=== PATIENT | female | born 1950 | race Two or more races ===

== ENCOUNTER 2024-10-27 15:57 | Inpatient (IN) | payer OTHER ==
[~2024-10-27] VITALS: Ht 162.6 cm; Wt 72.6 kg
[2024-10-27] MEDS ORDERED: AMLODIPINE-OLM1 EAC2 (16:19)
[2024-10-27] MEDS ORDERED: WELLBUTRIN SR200 MG (16:19)
[2024-10-27 18:53] LABS: PARTIAL THROMBOPLASTIN TIME 35.3 SECONDS (22.0-34.0); PROTHROMBIN TIME 10.9 SECONDS (9.0-11.5)
[2024-10-27 18:59] LABS: HEMATOCRIT 46.3 % (36.0-45.00); HEMOGLOBIN 14.9 g/dL (12.0-15.00); MEAN CELL VOLUME 85.3 fL (80.00-100.00); MEAN CORPUSCULAR HEMOGLOBIN 27.4 pg (27.00-32.0); MEAN CORPUSCULAR HGB CONC 32.2 g/dl (32.0-36.0); RED BLOOD COUNT 5.43 M/uL (4.00-6.00)
[2024-10-27 19:01] LABS: PLATELET COUNT 58 K/uL (150-450)
[2024-10-27 19:02] LABS: ALBUMIN 3.2 gm/dL (3.4-5.0); BILIRUBIN TOTAL 0.44 mg/dL (0.3-1.2); CALCIUM 9.3 mg/dL (8.5-10.1); CREATININE SERUM 0.87 mg/dL (0.55-1.02); GFR 63.82; GLOBULINA 3.4 G/DL (2.4-3.5); POTASSIUM 3.91 mEq/L (3.5-5.1); TOTAL PROTEIN 6.6 gm/dL (6.4-8.2)
[2024-10-27] MEDS ORDERED: 0.9 % SODIUM CHLORIDE 1,000 ML IV SCH (20:45)
[2024-10-27] MEDS ORDERED: ACETAMINOPHEN 500 MG GEL..CAP PO PRN (21:00)
[2024-10-27] MEDS ORDERED: ONDANSETRON HCL 4 MG in 0.9 % SODIUM CHLORIDE 50 ML IV PRN (21:00)
[2024-10-27 22:09] LABS: PH,URINE 5.5 (5.0-8.0); URINE APPEARANCE Clear; URINE BILIRRUBIN Negative (NEGATIVE); URINE BLOOD Negative; URINE COLOR Yellow; URINE GLUCOSE Negative (NEGATIVE); URINE KETONE Trace (NEGATIVE); URINE LEUKOCYTE Negative; URINE NITRATE Negative
[2024-10-27 22:13] LABS: URINE BACTERIA 182.3 uL (0.0-1933); URINE CAST 1.91 uL (0.0-1.40); URINE WBC 4.2 uL (0.0-23.2)
[2024-10-27 22:32] LABS: URINE PROTEIN 300 (NEGATIVE)
[2024-10-27 22:33] LABS: URINE MUCUS MODERATE
[2024-10-27 22:37] VITALS: BP 113/74; O2SAT 97
[2024-10-28 07:16] LABS: PLT IN CITRATE 52 K/uL (150-450)
[2024-10-28 07:21] LABS: HEMATOCRIT 44.1 % (36.0-45.00); HEMOGLOBIN 14.9 g/dL (12.0-15.00); MEAN CELL VOLUME 83.5 fL (80.00-100.00); MEAN CORPUSCULAR HEMOGLOBIN 28.2 pg (27.00-32.0); MEAN CORPUSCULAR HGB CONC 33.8 g/dl (32.0-36.0); RED BLOOD COUNT 5.28 M/uL (4.00-6.00); RED CELL DISTRIBUTION WIDTH 14.3 % (11.5-14.5)
[2024-10-28 07:48] VITALS: BP 128/67; O2SAT 98
[2024-10-28 08:06] LABS: MANUAL PLATELET COUNT 82; PLATELET COUNT 57 K/uL (150-450)
[2024-10-28 08:58] VITALS: BP 150/71; O2SAT 95
[2024-10-28] MEDS ORDERED: AMLODIPINE BESYLATE 2.5 MG TABLET PO SCH (09:00)
[2024-10-28] MEDS ORDERED: PANTOPRAZOLE SODIUM 40 MG/VIAL VIAL IV SCH (09:00)
[2024-10-28] MEDS ORDERED: BUPROPION HCL 150 MG TABLET.SA PO SCH (09:00)
[2024-10-28] MEDS ORDERED: WELLBUTRIN PO SCH (09:00)
[2024-10-28 15:07] VITALS: BP 121/64; O2SAT 98
[2024-10-28 17:19] VITALS: BP 157/69; O2SAT 97
[2024-10-29] VITALS: BP 114/53; O2SAT 96
[2024-10-29 07:04] LABS: HEMOGLOBIN 13.7 g/dL (12.0-15.00); MEAN CELL VOLUME 84.7 fL (80.00-100.00); MEAN CORPUSCULAR HEMOGLOBIN 27.6 pg (27.00-32.0); MEAN CORPUSCULAR HGB CONC 32.6 g/dl (32.0-36.0); RED BLOOD COUNT 4.96 M/uL (4.00-6.00)
[2024-10-29 08:15] LABS: PLATELET COUNT 62 K/uL (150-450)
[2024-10-29 13:59] VITALS: BP 166/77; O2SAT 97
[2024-10-29 16:22] VITALS: BP 127/58; O2SAT 98
== END 2024-10-29 20:27 | disposition home or self-care (01) | DRG 866 ==
LOC: ER 15:59 → SEC-K 20:55 → SURH 10-28 12:07
PROVIDERS: General Practice; ADMIT Internal Medicine; ATTEND Internal Medicine
PROC: BW40ZZZ Ultrasonography of Abdomen (ICD-10-PCS; principal; 2024-10-27)
DX: A90 Dengue fever [classical dengue] (principal); D69.6 Thrombocytopenia, unspecified; B34.9 Viral infection, unspecified; D72.819 Decreased white blood cell count, unspecified; K81.9 Cholecystitis, unspecified; I10 Essential (primary) hypertension